=== PATIENT | female | born 1960 | race Caucasian/White ===

== ENCOUNTER 2020-04-29 14:51 | Outpatient (CLI) | payer OTHER ==
[2020-04-30 04:29] LABS: SARS-CoV-2 PCR by NAA Not Detected (NotDetected)
== END 2020-04-29 14:52 | disposition home or self-care (01) ==
LOC: CSHLAB 14:51
PROVIDERS: ATTEND Otolaryngology Plastic Surgery within the Head & Neck
DX: Z01.818 Encounter for other preprocedural examination (principal); Z20.822 Contact with and (suspected) exposure to COVID-19; E07.9 Disorder of thyroid, unspecified; I45.10 Unspecified right bundle-branch block
CPT/HCPCS: 85014; 87635; 93005; 93010; U0003; U0005

== ENCOUNTER 2020-05-03 09:02 | Observation (INO) | payer OTHER ==
[2020-04-30 10:58] VITALS: BMI 38.9
[2020-05-03] MEDS ORDERED: Lidocaine 1% w/Epinephrine 1:100K 20 ML VIAL ONE (10:10)
[2020-05-03] MEDS ORDERED: Midazolam HCl 2 mg/2 ml Vial ONE ×2 (10:11→10:17)
[2020-05-03] MEDS ORDERED: Rocuronium Bromide 10 MG/ML (10ML VIAL) ONE (10:17)
[2020-05-03] MEDS ORDERED: Dexamethasone 4 mg/ml Vial ONE (10:17)
[2020-05-03] MEDS ORDERED: Glycopyrrolate 0.2 MG/ML 5 ML SYRINGE ONE (10:17)
[2020-05-03] MEDS ORDERED: Lidocaine 1% PF 5 ML VIAL ONE (10:17)
[2020-05-03] MEDS ORDERED: Ondansetron PF 4 MG/2 ML Vial ONE (10:17)
[2020-05-03] MEDS ORDERED: Fentanyl 100 MCG/2 ML VIAL ONE (10:17)
[2020-05-03] MEDS ORDERED: PROPOFOL 20 ML ONE (10:17)
[2020-05-03] MEDS ORDERED: Ketorolac Tromethamine 30 MG/ML VIAL ONE (10:17)
[2020-05-03] MEDS ORDERED: CEFAZOLIN 1 GM VIAL ONE (10:31)
[2020-05-03] MEDS ORDERED: HYDROcodone/Acetaminophen 7.5/325 mg Tablet PO PRN (10:41)
[2020-05-03] MEDS ORDERED: Ondansetron PF 4 MG/2 ML Vial IVP PRN (10:41)
[2020-05-03] MEDS ORDERED: HYDROcodone/Acetaminophen 5/325 mg Tablet PO PRN (10:41)
[2020-05-03] MEDS ORDERED: Calcium Carbonate 600 MG TAB PO SCH (18:15)
[2020-05-03] MEDS ORDERED: Losartan 25 MG TAB PO SCH (18:15)
[2020-05-03] MEDS: Calcium Carbonate 600 MG TAB PO SCH (20:05)
[2020-05-03] MEDS: Acetaminophen 325 MG TAB PO PRN (20:09)
[2020-05-04] MEDS: Acetaminophen 325 MG TAB PO PRN ×2 (01:30→08:44)
[2020-05-04] MEDS: Calcium Carbonate 600 MG TAB PO SCH (08:44)
[2020-05-04 08:45] VITALS: BP 164/81; TEMP 97.9
[2020-05-04] MEDS ORDERED: Losartan 25 MG TAB PO SCH (09:00)
[2020-05-04] MEDS ORDERED: Escitalopram Oxalate 10 mg Tablet PO SCH (09:00)
== END 2020-05-04 10:15 | disposition home or self-care (01) ==
LOC: CSHSDC 09:02 → CSHTELE 12:25
PROVIDERS: ADMIT Otolaryngology Plastic Surgery within the Head & Neck; ATTEND Otolaryngology Plastic Surgery within the Head & Neck
PROC: 0GTG0ZZ Resection of Left Thyroid Gland Lobe, Open Approach (ICD-10-PCS; principal; 2020-05-03)
DX: E04.2 Nontoxic multinodular goiter (principal); Z90.710 Acquired absence of both cervix and uterus
CPT/HCPCS: 36415; 82310; 82330; 83970; 88307; G0378; J0690; J1100; J1885; J2250; J2405; J2704; J3010